=== PATIENT | female | born 1995 | race Caucasian/White ===

== ENCOUNTER 2018-09-24 08:23 | Emergency (ER) | payer OTHER ==
[2018-09-24 08:35] VITALS: BP 150/89; PULSE 94; TEMP 98.3; BMI 38.3
--- NOTE | 2018-09-24 09:19 | PDOC ---
History of Present Illness - General Chief Complaint: Pain, Acute Stated Complaint: LT KNEE INJURY Time Seen by Provider: 09/24/18 08:52 History Source: Patient Exam Limitations: Clinical Condition - History of Present Illness Initial Comments: 09/24/18 09:14 Patient with no significant past medical history present with complaint of left knee pain after undergoing bungee jumping in the indoor bungee jumping [facility] and twisted left knee yesterday. Patient reported increased pain to left knee with ambulation. Denies any other symptoms. Denies any previous knee injury Timing/Duration: 24 hours Past History - Past Medical History Allergies/Adverse Reactions: Allergies Allergy/AdvReac Type Severity Reaction Status Date / Time No Known Allergies Allergy Verified 09/24/18 08:35 Home Medications: Ambulatory Orders Ibuprofen 800 mg PO Q8H PRN #20 tablet 09/24/18 - Suicide/Smoking/Psychosocial Hx Smoking History: Never smoked Have you smoked in the past 12 months: No Information on smoking cessation initiated: No Hx Alcohol Use: No Drug/Substance Use Hx: No Review of Systems - Review of Systems Able to Perform ROS?: Yes Is the patient limited Polish proficient: No Constitutional: No: Weakness HEENTM: No: Symptoms Reported Respiratory: No: Symptoms reported Cardiac (ROS): No: Symptoms Reported ABD/GI: No: Symptoms Reported : No: Symptoms Reported Musculoskeletal: Yes: Symptoms Reported, See HPI, Joint Pain, Muscle Pain (left knee), Joint Stiffness. No: Muscle Weakness Neurological: No: Numbness, Paresthesia, Tingling All Other Systems: Reviewed and Negative *Physical Exam - Vital Signs Last Vital Signs Temp Pulse Resp BP Pulse Ox 98.3 F 94 H 18 150/89 98 09/24/18 08:33 09/24/18 08:33 09/24/18 08:33 09/24/18 08:33 09/24/18 08:33 - Physical Exam Comments: 09/24/18 09:18 GENERAL: Well developed, well nourished. Awake and alert. No acute distress. CARDIOVASCULAR: Regular rate and rhythm. No murmurs, rubs, or gallops. PULMONARY: No evidence of respiratory distress. Lungs clear to auscultation bilaterally. No wheezing, rales or rhonchi. MUSCULOSKELETAL : Moderate tenderness over medial and lateral collateral ligament of left knee which is worse with extension of knee. No swelling or effusion of left knee. No bony deformities SKIN: Warm and dry. Normal capillary refill. NEUROLOGICAL: Alert, awake, appropriate. No motor deficits in the lower extremities. Gait is normal without ataxia. PSYCHIATRIC: Cooperative. Good eye contact. Appropriate mood and affect. General Appearance: Yes: Nourished, Appropriately Dressed, Mild Distress ED Treatment Course - RADIOLOGY Radiology Studies Ordered: Category Date Time Status KNEE 3 POS-LEFT [RAD] Stat Radiology 09/24/18 09:10 Ordered Medical Decision Making - Medical Decision Making 09/24/18 09:19 Patient with no significant past medical history present with complaint of left knee pain status post going bungee jumping yesterday and twisting the left knee. Exam significant for moderate tenderness over medial and lateral collateral ligament of left knee which is worse with extension of knee. No swelling or effusion of left knee. No bony deformities X-ray of left knee ordered. Ibuprofen 800 mg by mouth ordered for pain. Symptoms likely knee sprain versus less likely meniscus tear. Patient be discharged home on NSAIDs and knee brace if negative x-ray 09/24/18 09:38 X-ray of left knee shows no acute pathology. Patient is stable for discharge on NSAIDs and left knee wrapped with Masoud bandage. *DC/Admit/Observation/Transfer Diagnosis at time of Disposition: Sprain of left knee Qualifiers: Encounter type: initial encounter Involved ligament of knee: unspecified ligament Qualified Code(s): S83.92XA - Sprain of unspecified site of left knee, initial encounter - Discharge Dispostion Disposition: HOME Condition at time of disposition: Stable Decision to Admit order: No - Prescriptions Prescriptions: Ibuprofen 800 mg PO Q8H PRN #20 tablet PRN Reason: pain - Referrals Referrals: Rudi Harris DO [Staff Physician] - - Patient Instructions Printed Discharge Instructions: Knee Sprain Additional Instructions: Rest left knee. Keep Masoud wrap on to help with knees pain. Take prescribed medication as needed for pain. Follow-up referred orthopedics if no improvement in 5 days - Post Discharge Activity Forms/Work/School Notes: Back to Work
[2018-09-24] MEDS ORDERED: IBUPROFEN 400 MG TABLET (FP) PO ONE ×2 (09:24→09:27)
== END 2018-09-24 09:42 | disposition home or self-care (01) ==
LOC: JERFT 08:23
PROC: 2W3RXYZ Immobilization of Left Lower Leg using Other Device (ICD-10-PCS; principal; 2018-09-24)
DX: S83.8X2A Sprain of other specified parts of left knee, initial encounter (principal); W17.89XA Other fall from one level to another, initial encounter; Y93.34 Activity, bungee jumping; Y92.838 Other recreation area as the place of occurrence of the external cause; Y99.8 Other external cause status
CPT/HCPCS: 73562-TC-LT-FY; 99281-25